=== PATIENT | male | born 1990 ===

== ENCOUNTER 2018-08-08 19:55 | Emergency (ER) | payer MEDICAID ==
[~2018-08-08] VITALS: Ht 172.7 cm; Wt 91.2 kg
[2018-08-08 20:24] VITALS: Ht 172.7 cm; Wt 91.2 kg
[2018-08-08 21:20] LABS: BASOPHIL % 0.2 % (0-2); PLATELET COUNT 198 x10^3mcL (130-400); RED CELL DISTRIBUTION WIDTH 14.4 % (11.5-14.5)
[2018-08-08 21:27] LABS: CALCIUM 8.9 mg/dL (8.5-10.1); CARBON DIOXIDE 26.8 mmol/L (21-32); CHLORIDE SERUM 104 mmol/L (98-107); GFR1 > 60 mL/min; GLUCOSE SERUM 98 mg/dL (74-106); SODIUM SERUM 141 mmol/L (136-145)
[2018-08-08 21:27] LABS: AMPHETAMINE QUAL UR NONE DETECTED (See below)
[2018-08-08 21:40] LABS: ALKALINE PHOSPHATASE 119 U/L (46-116); ALT/SGPT 67 U/L (16-63); AST/SGOT 30 U/L (15-37); BILIRUBIN TOTAL 0.24 mg/dL (0.20-1.00); TOTAL PROTEIN, SERUM 7.8 g/dL (6.4-8.2)
[2018-08-08 23:41] VITALS: BP 145/82
== END 2018-08-08 23:41 | disposition home or self-care (01) ==
LOC: ED 19:55
PROVIDERS: Emergency Medicine
DX: R45.1 Restlessness and agitation (principal); F84.0 Autistic disorder; Z88.8 Allergy status to other drugs, medicaments and biological substances
CPT/HCPCS: 36415; 84439; 87804; G0480